=== PATIENT | male | born 2000 | race Caucasian/White ===

== ENCOUNTER → 2022-03-10 | Outpatient (CLI) | payer BC ==
[~2022-03-10] MED LIST: ZOFRAN4 MG PO
== END ==
LOC: RAD 09:25
DX: M25.571 Pain in right ankle and joints of right foot (principal); M89.9 Disorder of bone, unspecified
CPT/HCPCS: 73610

== ENCOUNTER → 2022-03-19 | Outpatient (CLI) | payer BC | LOC: KOH-I 11:06 | DX: M93.279 Osteochondritis dissecans, unspecified ankle and joints of foot (principal) | CPT/HCPCS: 73721 ==